=== PATIENT | male | born 1955 ===

== ENCOUNTER 2019-09-22 07:34 | Emergency (ER) | payer OTHER ==
[2019-09-22 07:59] VITALS: BP 120/92
--- NOTE | 2019-09-22 08:50 | UC ---
Hip/Pelvis Pain - HPI Summary HPI Summary: left hip pain x 1 week pain is 7 out 10 , worse with walking, external rotation better with rest, s/p fall on ice one week ago on his left hip no swelling, no bruising - History Of Current Complaint Chief Complaint: UCLowerExtremity Stated Complaint: L HIP INJ Time Seen by Provider: 09/22/19 08:11 Hx Obtained From: Patient Mechanism Of Injury: fall on his left hip Onset/Duration: Sudden Onset, Lasting Days - 7, Still Present Timing: Constant Severity Initially: Moderate Severity Currently: Moderate Pain Intensity: 7 Location: Discrete At: - left hip Character Of Pain: Aching, Spasmodic Aggravating Factor(s): Movement, Weight Bearing Alleviating Factor(s): Rest, Position Associated Signs And Symptoms: Negative: Swelling, Redness, Bruising, Fever, Weakness - Allergies/Home Medications Allergies/Adverse Reactions: Allergies Allergy/AdvReac Type Severity Reaction Status Date / Time codeine Allergy GI Upset Verified 09/22/19 07:59 gabapentin Allergy Altered Verified 09/22/19 07:59 Mental Status morphine Allergy GI Upset Verified 09/22/19 07:59 Home Medications: Home Medications Atorvastatin* [Lipitor*] 40 mg PO DAILY 09/22/19 [History Confirmed 09/22/19] Calcium Carb, Citrate/Vit D3 [Calcium+D3 Gradual Releas] 1 tab PO DAILY [History Confirmed 09/22/19] Cyclobenzaprine TAB* [Flexeril 10 MG TAB*] 10 mg PO BID PRN #20 tab 09/22/19 [Rx ] Ibuprofen TAB* [Motrin TAB* 800 MG] 800 mg PO Q6H 09/22/19 [History Confirmed ] Methadone HCl 5 mg PO BID 09/22/19 [History Confirmed 09/22/19] Multivitamin [Multivitamins] 1 cap PO BID 09/22/19 [History Confirmed 09/22/19] Naproxen [Naproxen 500 mg tab] 500 mg PO BID #20 tablet 09/22/19 [Rx] PMH/Surg Hx/FS Hx/Imm Hx - Additional Past Medical History Additional PMH: arthritis, high cholesterol - Surgical History Surgical History: Yes Surgery Procedure, Year, and Place: gastric bypass, gall bladder, hernia repair - Family History Known Family History: Negative: Diabetes - Social History Alcohol Use: Daily Substance Use Type: None Smoking Status (MU): Never Smoked Tobacco Review of Systems All Other Systems Reviewed And Are Negative: Yes Is Patient Immunocompromised?: No Physical Exam Triage Information Reviewed: Yes Appearance: Well-Appearing, No Pain Distress, Well-Nourished Vital Signs: Initial Vital Signs Temp 99.7 F 09/22/19 07:48 Pulse 76 09/22/19 07:48 Resp 18 09/22/19 07:48 BP 120/92 09/22/19 07:48 Pulse Ox 97 09/22/19 07:48 Vital Signs Reviewed: Yes Eye Exam: Normal Eyes: Positive: Conjunctiva Clear ENT: Positive: Normal ENT inspection, Hearing grossly normal, Pharynx normal Neck exam: Normal Neck: Positive: Supple, Nontender, No Lymphadenopathy Respiratory: Positive: Chest non-tender, Lungs clear, Normal breath sounds Cardiovascular: Positive: RRR, No Murmur, Pulses Normal Musculoskeletal: Positive: Other: - left hip: no swelling, no bruising, + tenderness lateral left hip , pain with flexion , abduction . decrease ROM on flexion, limited strength Diagnostics - Radiology No standard instances Radiology Interpretation Completed By: Radiologist Summary of Radiographic Findings: xray report left hip: IMPRESSION: No fracture of the left hip or pelvis is noted. Hip Injury Course/Dx - Differential Dx/Diagnosis Provider Diagnosis: Contusion of left hip Discharge ED - Sign-Out/Discharge Documenting (check all that apply): Patient Departure All imaging exams completed and their final reports reviewed: Yes - Discharge Plan Condition: Stable Disposition: HOME Prescriptions: Cyclobenzaprine TAB* [Flexeril 10 MG TAB*] 10 mg PO BID PRN #20 tab PRN Reason: Pain - Moderate Naproxen [Naproxen 500 mg tab] 500 mg PO BID #20 tablet Patient Education Materials: Hip Contusion (ED) Referrals: Nina Barker [Primary Care Provider] - 7 Days Additional Instructions: xray did not show any fracture of the left hip contusion / sprain / strain of the left hip cont. with rest , ice, elevation Naproxy / Flexeril 2 x per day as needed for pain follow up with your pcp in 7 to 10 days for re-check - Billing Disposition and Condition Condition: STABLE Disposition: Home
== END 2019-09-22 09:07 | disposition home or self-care (01) ==
LOC: UCCORT 07:34
DX: S70.02XA Contusion of left hip, initial encounter (principal); E78.00 Pure hypercholesterolemia, unspecified; Z88.5 Allergy status to narcotic agent; Z88.8 Allergy status to other drugs, medicaments and biological substances; Z79.899 Other long term (current) drug therapy; W00.9XXA Unspecified fall due to ice and snow, initial encounter; Y92.9 Unspecified place or not applicable
CPT/HCPCS: 99212; G0463